=== PATIENT | male | born 1980 | race Caucasian/White ===

== ENCOUNTER → 2017-10-18 | Outpatient (CLI) | payer SELFPAY ==
--- NOTE | 2017-10-18 10:13 | CT ---
CORONARY CALCIUM SCORE CLINICAL INDICATION: Screening. COMPARISON: None PROCEDURE: Gated images of the coronary arteries. Coronary artery calcium scoring was performed. FINDINGS: Coronary calcium scoring - 0 LM: 0 LAD: 0 LCX: 0 RCA: 0 IMPRESSION: 1. Calcium score of 0. This places the patient at approximately the 0-25th percentile for males of eq uivalent age. No identifiable plaque. Less than 5% risk of coronary artery disease. Reported By:
== END ==
LOC: RAD 08:08
PROVIDERS: ATTEND Internal Medicine
DX: Z13.6 Encounter for screening for cardiovascular disorders (principal)